=== PATIENT | female | born 1950 ===

== ENCOUNTER → 2020-07-27 10:20 | Outpatient (BNVA) | payer MEDICARE, SELFPAY | PROVIDERS: PCP Pediatrics; Referring Provider Pediatrics; Visit Provider Hospitalist | DX: Z01.811 Encounter for preprocedural respiratory examination (principal); J44.9 Chronic obstructive pulmonary disease, unspecified; J67.9 Hypersensitivity pneumonitis due to unspecified organic dust; A31.9 Mycobacterial infection, unspecified; R91.8 Other nonspecific abnormal finding of lung field; Z79.52 Long term (current) use of systemic steroids | CPT/HCPCS: 99212 ==